=== PATIENT | female | born 1995 | race Caucasian/White ===

== ENCOUNTER 2017-06-26 06:12 | Inpatient (IN) ==
--- OUTSIDE RECORDS SUMMARY | 2017-06-26 06:19 | External Medical Summary ---
:1997 Author Organization [facility] Address [address] [place], [place] [address] Care Team Providers Name Role Phone Alice Chavarria Unavailable Unavailable PROBLEMS Type Condition ICD9-CM Code NUT12-SG Code Onset Condition SNOMED Code Dates Status Assessment Nausea & R11.2 Oct, Active 55073469 vomiting 2016 Assessment Abnormal urine R82.90 Oct, Active 475220023 finding 2016 ALLERGIES Substance Reaction Event Type Date Status N.K.D.A. Unknown Non Drug Allergy Oct, Unknown SOCIAL HISTORY No smoking Hx information available PLAN OF CARE Activity Details Pending Test Urine Culture prn,Reason: VITAL SIGNS Height 5 ft 8 in in 2016-11-02 Weight 154 lb 4 oz lbs 2016-11-02 BMI 23.45 kg/m2 2016-11-02 Temperature 98.2 degrees Fahrenheit 2016-11-02 Heart Rate 74 /min 2016-11-02 Respiratory Rate 18 /min 2016-11-02 Oximetry 97 % 2016-11-02 Blood pressure systolic 120 mm Hg 2016-11-02 Blood pressure diastolic 64 mm Hg 2016-11-02 MEDICATIONS Medication Instructions Dosage Frequency Start End Date Duration Status Date Zofran ODT 8 Orally every 8 as directed Oct, days Active MG hours prn nausea 2017 and vomiting RESULTS Name Result Date Reference Range Test, Urine 2016-11-02 Test, Urine negative Urinalysis (UA) - IH 2016-11-02 Color yellow Character clear Blood trace-intact Glucose neg 0 - 0 Bilirubin neg Ketones neg 0 - 0 Specific [place] 1.015 pH 7.5 Leukocytes neg Protein neg 0 - 0 Nitrates neg Urobilirubin 0.2 0.2 - 1 Urine Culture 2016-11-02 Urine Culture Source: Urine Collected: 11/02/16 12:34 PROCEDURES Procedure Date Ordered Related Diagnosis Body Site URINE TEST November 02, 2016 URINALYSIS NONAUTO WO SCOPE November 02, 2016 OFFICE VISIT NEW PATIENT LEVEL 2 November 02, 2016 URINE CULTURECOLONY COUNT November 02, 2016 IMMUNIZATIONS No Known Immunizations
--- OUTSIDE RECORDS SUMMARY | 2017-06-26 06:19 | External Medical Summary | Continuity of Care Document ---
:1997 Author Organization [facility] Address [address] [place], [place] [address] Phone Support Name Relationship Address Phone Adrian Mcduffie parent [address] [phone] [facility] [place] [address] Alda Greene parent [phone] [phone] EPIFANIO Fonseca [phone] Allergies, Adverse Reactions, Alerts Substance Reaction Severity Status No Known Drug Allergies Unknown Active Medications Medication Instructions Dosage Effective Dates Status Comments (start - stop) Prenatabs Rx 29 mg take 1 tablet by Not Available - Active iron-1 mg tablet oral route every day Problems Condition Effective Dates (start - stop) Clinical Status Cystic fibrosis carrier - Encntr for suprvsn of normal first - preg, second trimester 26 weeks gestation of - 9 weeks gestation of - Encntr for suprvsn of normal first - preg, first trimester Irregular Menses Cystic fibrosis carrier - Encntr for suprvsn of normal first - preg, second trimester 18 weeks gestation of - Cystic fibrosis carrier - Encntr for suprvsn of normal first - preg, second trimester 22 weeks gestation of - Cystic fibrosis carrier - 18 weeks gestation of - Encntr for suprvsn of normal first - preg, second trimester Encntr for suprvsn of normal first - preg, first trimester 13 weeks gestation of - Asthma Active Procedures Procedure Date OB Visit No Charge Hemoglobin count, colorimetric Hematocrit blood count Glucose test Venpnctr fngr/heel/ear stick routne Results Test Name Date and Time Measure Units Reference Range Abnormal Flag Comments Panel Description: Glucose [Mass/volume] in Serum or Plasma --1 hour post 50 g glucose PO GLUCOSE, GESTATIONAL 96 mg/dL <140 N Test performed at [facility] SCREEN (50G)-140 09:25:00 DIAGNOSTICS [id number] [place] [address]Khsrnzaf: EDINSON TA DO,MPH Panel Description: HEMOGLOBIN + HEMATOCRIT HEMOGLOBIN 09:25:00 10.8 g/dL 11.7-15.5 L HEMATOCRIT 09:25:00 31.3 % 35.0-45.0 L Test performed at [facility] [id number] [place] [id number]: EDINSON TA DO,MPH Advance Directives Directive Yes / No Effective Date File Name Unknown Encounters Encounter Practice Location Reason(s) Diagnoses Date Provider Care Team Description For Visit Members Associates С[place]гей reed Tani Referring In [facility] nda. Provider: Siddharth OVERTON, for suprvsn of 7 700 [address] normal first Medical Pierce T, 1522, preg, second Center 700 [place], [id number] Reza Vang, weeks gestation 120, [place] [id number], [facility], [place], tel: [phone] [place], [address] , [place]. [id number]. tel: tel: [phone] Prasanth reed Tani [facility] Provider: Siddharth OVERTON, for suprvsn of 7 700 [address] normal first Medical Pierce T, 1522, preg, second Center 700 [place], [id number] Reza Vang, weeks gestation 120, [place] [id number], of Сергей, Reza 120, [place], tel:+ [phone] [place], , [place]. [id number]. tel: tel:[phone] Prasanth Rushing Cystic fibrosis Victoriano-2 Pierce Referring In Womens [email or web address] weeks 6-201 Kristina. Provider: Siddharth OVERTON, gestation of 7 700 Kristina [address] pregnancyEncntr Medical Pierce T, 1522, for suprvsn of Center 700 [place], normal first Reza Vang, preg, second 120, Center [id number], trimester Rushing, Reza 120, [place], tel:+ [phone] [place], , [place]. [id number]. tel: tel:[phone] Prasanth Rushing Cystic fibrosis Victoriano-2 Pierce Referring In Womens Ultrasound carrierEncntr 6-201 Kristina. Provider: Siddharth OVERTON, for suprvsn of 7 700 [address]ist[address] normal first Medical Pierce T, 152, preg, second Center 700 [place], [id number] Reza Vang, weeks gestation 120, Center [id number], of Rushing, Reza 120, [place], tel:+ [phone] [place], , [place]. [id number]. tel: tel:[phone] Prasanth Rushing Encntr for May-2 Pierce Referring In Womens suprvsn of 5-201 Kristina. Provider: Siddharth OVERTON, normal first 7 700 Kristina [address] preg, first Medical Pierce T, 1522, [id number] Center 700 [place], weeks gestation Reza Vang, of 120, Center [id number], [place], Reza 120, [place], tel:[phone] [place], , [place]. [id number]. tel: tel:[phone] Prasanth Rushing 9 weeks Apr-2 Pierce Referring In Womens gestation of 7-201 Kristina. Provider: Siddharth OVERTON, pregnancyEncntr 7 700 Kristina [address] for suprvsn of Medical Pierce T, 1522, normal first Center 700 [place], preg, first Dr, [facility], trimester 120, Center [id number], Сергей, [facility] 120, TISHA, Сергей, tel: [phone] [place], , . [id number]. tel: tel:[phone] Associates С[place]гей Irregular Menses May-0 Pierce Referring In Womens 4-201 Kristina. Provider: Health [place], 6 700 [facility] Pierce T, 1522, [place] [address] [address] Grisel, [facility], 120, [place] [id number], Rushing, [facility] 120, [facility], Сергей, tel: [phone] [place], , . [id number]. tel: tel:[phone] Associates [place]ей May-0 Pierce In Womens 4-201 Kristina. Formerly [facility], 1928–1983, 6 700 [facility] 1522, [place] Dr Grisel, [facility], 120, [id number], [place], TISHA, tel: [phone] , . tel: [phone] Family History Family Member Diagnosis Age At Onset Paternal Grandfather Diabetes Paternal Grandfather Cardiovascular Disease Paternal Grandmother Diabetes Paternal Grandfather Hypertension Father Diabetes Father Hypertension Paternal Grandmother Hypertension Paternal Grandmother Thyroid Disorder Immunizations Vaccine Date Status Comments Unknown Payers Payer name Insurance type Covered libertarian ID Authorization(s) [facility] [id number] [facility] [id number] Social History Type Description Quantity Date Captured Alcohol Use Details Unknown Caffeine Use Details Unknown Tobacco Use Status Smoking Status Former smoker Vital Signs Date / Height Weight BMI Pulse Blood Temperature Respiratory Body Head BMI Time: Rate Pressure Rate Surface Circumference percentile Area 170.60 26.3 130/87 -2017 lbs 2 mm[Hg] 8:32 kg/m AM eter (2) Chief Complaint And Reason For Visit Unknown Chief Complaint And Reason For Visit Reason For Referral Reason For Referral Unknown Plan Of Care Date Type Action Status Appointment Haley Mcduffie BOOKED Appointment Haley Mcduffie BOOKED Appointment Haley Mcduffie BOOKED Appointment Haley Mcduffie BOOKED Future Order: Radiology Order Complete OB Ultrasound > 14 Ordered Weeks ([id number]) Date Type Problem Goal Intervention Status Start Date Unknown. History Of Present Illness Encounter Date Complaint History Of Present Illness This patient has no known history of present illness Functional Status Encounter Date Functional Assessment Cognitive Assessment Unknown Medications Administered Medication Instructions Dosage Effective Dates (start - stop) Status Comments Drug Treatment Unknown Instructions Date Instruction Additional Information HIV and other routine tests risk factors identified by history anticipated course of care nutrition and weight gain counseling, special diet toxoplasmosis precautions (cats / raw meat) sexual activity exercise indications for ultrasound influenza vaccine environmental / work hazards travel tobacco (ask, advise, assess, assist and arrange) alcohol illicit / recreational drugs use of any medications (including supplements, vitamins, herbs, OTC drugs) smoking counseling domestic violence seat belt use childbirth classes / hospital facilities hospital registration genetic testing new ob handbook
--- OUTSIDE RECORDS SUMMARY | 2017-06-26 06:19 | External Medical Summary | Continuity of Care Document ---
:1997 Author Organization [facility] Address [address] [place], [place] [address] Phone Support Name Relationship Address Phone Adrian Mcduffie parent [address] [phone] [place] [address] Alda Greene parent [phone] [address] [phone] EPIFANIO Fonseca [phone] Allergies, Adverse Reactions, Alerts Substance Reaction Severity [...] second trimester 22 weeks gestation of - Encntr for suprvsn of normal first - preg, first trimester 9 weeks gestation of - Irregular Menses Cystic fibrosis carrier - Encntr for suprvsn of normal first - preg, second trimester 18 weeks gestation of - Cystic fibrosis carrier - Encntr for suprvsn of normal first - preg, second trimester 18 weeks gestation of - Encntr for suprvsn of normal first - preg, first trimester 13 weeks gestation of - Asthma Active Procedures Procedure Date OB Visit No Charge Results Test Name Date and Time Measure Units Reference Range Abnormal Flag Comments Unknown Advance Directives Directive Yes / No Effective Date File Name Unknown Encounters Encounter Practice Location Reason(s) Diagnoses Date Provider Care Team Description For Visit Members Prasanth Coronado Lamont-2 Tani Referring In Womens fibrosis 4- Adriane. Provider: Madeline Williamsonntr 7 700 Kristina [address], for suprvsn of Medical Pierce Pap[place], [place], normal first Center 700 [id number], preg, second [facility] [place] [email or web address] 120, Center tel:+21 weeks Rushing, [facility] [place] 120, [address] gestation of Сергей [place], [id number] [place], , [place]. [id number]. tel: tel:[phone] Prasanth Coronado Victoriano-2 Pierce Referring In Womens fibrosis - Kristina. Provider: Madeline Williamsonntr 7 700 [address]ina [address], for suprvsn of Medical Pierce T, [place], [place], normal first Center 700 [id number], preg, second [facility] [place] [email or web address] 120, [place] tel:+21 weeks Сергей [facility] [place] 120, [address] gestation of Сергей [place], [id number] [place], , [place]. [id number]. tel: tel:[phone] Prasanth Coronado Victoriano-2 Pierce Referring In Womens Ultrasound fibrosis - Kristina. Provider: Madeline Williamsonntr 7 700 [address]ina [address], for suprvsn of Medical Pierce T, [place], normal first Center 700 [id number], preg, second [facility] [place] [email or web address] 120, [place] tel:+[phone] weeks Сергей Reza 120, [address] gestation of Сергей [place], [id number] [place], , [place]. [id number]. tel: tel:[phone] Associates Сергей Pratt for December- Pierce Referring In Womens suprvsn of - Kristina. Provider: Siddharth OVERTON normal first 7 700 Kristina [address], preg, first Medical Pierce Papito, [place], Center 700 [id number], weeks [facility] [place] gestation of 120, [place] tel: R[place], [facility] [place] 120, [address] [place], С[place], [id number] [place], , [place]. [id number]. tel: tel: [phone] Associates Сергей Encntr for Apr-2 Pierce Referring In Womens suprvsn of 7-201 Kristina. Provider: Health [place], normal first 7 700 Kristina [address], preg, first Medical Pierce T, [place], [place], trimester9 Center [facility] [id number], weeks , [facility] gestation of 120, Center tel: Сергей, [facility] [place] 120, [address] [place], [place], [id number] [place], , [place]. [id number]. tel: tel: [phone] Prasanth Rushing Irregular Oct-0 Pierce Referring In Womens Menses 4-201 Kristina. Provider: Siddharth OVERTON, 6 700 Kristina [address], Medical Kari Cobos [place], [place], [place] [id number], , [facility] 120, [place] tel:21 [facility], [address] [place], [place], [id number] [place], , [place]. [id number]. tel: tel: [phone] Prasanth Rushing Oct-0 Pierce In Womens 4-201 Kristina. Health TIAN, 6 700 [address], [place], [place], [place] [id number], , [facility] 120, tel: С[facility]гей [phone], [id number] , [place]. tel: [phone] Family History Family Member Diagnosis Age At Onset Paternal Grandfather Diabetes Paternal Grandfather Cardiovascular Disease Paternal Grandmother Diabetes Paternal Grandfather Hypertension Father Diabetes Father Hypertension Paternal Grandmother Hypertension Paternal Grandmother Thyroid Disorder Immunizations Vaccine Date Status Comments Unknown Payers Payer name Insurance type Covered alliance party ID Authorization(s) [facility] [place] [id number] [employer] CI [id number] Social History Type Description Quantity Date Captured Alcohol Use Details Unknown Caffeine Use Details Unknown Tobacco Use Status Smoking Status Former smoker Vital Signs Date / Height Weight BMI Pulse Blood Temperature Respiratory Body Head BMI Time: Rate Pressure Rate Surface Circumference percentile Area Unknown Chief Complaint And Reason For Visit Unknown Chief Complaint And Reason For Visit Reason For Referral Reason For Referral Unknown Plan Of Care Date Type Action Status Appointment Haley Mcduffie BOOKED Future Order: Radiology Order Complete OB Ultrasound > 14 Ordered Weeks (40419) Date Type Problem Goal Intervention Status Start [...]
--- OUTSIDE RECORDS SUMMARY | 2017-06-26 06:19 | External Medical Summary | Continuity of Care Document ---
:1997 Author Organization [facility] Address [address] [place], [place] [address] Phone Support Name Relationship Address Phone Adrian Mcduffie parent [address] [phone] [place] [address] Alda Greene parent [address] [address] [place] [address] [phone] EPIFANIO Fonseca [address] Allergies, Adverse Reactions, Alerts Substance Reaction Severity [...] for suprvsn of normal first - preg, third trimester 30 weeks gestation of - Encntr for suprvsn of normal first - preg, first trimester 9 weeks gestation of - Irregular Menses Cystic fibrosis carrier - Encntr for suprvsn of normal first - preg, second trimester 26 weeks gestation of - Cystic fibrosis carrier [...] for suprvsn of normal first - preg, third trimester 32 weeks gestation of - Encntr for suprvsn of normal first - preg, first trimester 13 weeks gestation of - Asthma Active Procedures Procedure Date Injection Administration Rhophylac 100 Units OB Visit No Charge Antibody Screen, RBC Venpnctr fngr/heel/ear stick routne Results Test Name Date and Time Measure Units Reference Range Abnormal Flag Comments Panel Description: ANTIBODY SCREEN, RBC W/REFL ID, TITER AND AG ANTIBODY NO ANTIBODIES N Reference SCREEN, RBC 13:22:00 DETECTED range No W/REFL ID, antibodies detected This TITER AND AG assay is a screening test for the detection of red blood cell antibodies. The test is not to be used for pretransfusion screening or for the medical management of an alloimmunized . REPORT COMMENT:FASTING:NOTest performed at [employer] [id number] [place] [address]Chkrfyzc: EDINSON TA DO,MPH Advance Directives Directive Yes / No Effective Date File Name Unknown Encounters Encounter Practice Location Reason(s) Diagnoses Date Provider Care Team Description For Visit Members Prasanth Coronado Tani Referring In Womens fibrosis [place]. Provider: linette WilliamsonEncntr 7 700 Kristina [address], for suprvsn of Medical Grisel Peña [place], normal [facility] Center 700 [id number], preg, third Reza Vang [place] [email or web address] 120, Center tel:[phone] weeks Reza [place] 120, [address] gestation of TISHA, [place], [id number] [place], , [place]. [id number]. tel: tel: [phone] Prasanth Coronado Apr- [facility] Referring In Womens fibrosis Adriane. Provider: Siddharth OVERTON carrierEncntr 7 Kristina [address], for suprvsn of Medical Grisel [place]ña [place], normal first Center 700 [id number], preg, third [facility] [place] [email or web address] 120, Center tel:+21 weeks Сергей Reza 120, [address] gestation of Сергей [place], [id number] [place], , [place]. [id number]. tel: tel:[phone] Prasanth Rushing Cystic Aug-2 Tani Referring In Womens fibrosis [place]. Provider: Siddharth OVERTON [employer] 7 700 [address]ina [address], for suprvsn of Medical [place], normal first Center 700 [id number], preg, second [facility] [place] [email or web address] 120, Center tel:+21 weeks Сергей Reza 120, [address] gestation of Сергей [place], [id number] [place], , [place]. [id number]. tel: tel:[phone] Prasanth Coronado Lamont-2 Tani Referring In Womens fibrosis [place]. Provider: Madeline Williamsonntpurnima 7 700 [address], for suprvsn of Medical Pierce Papito [place], normal first Center 700 [id number], preg, second [facility] [place] [id number] 120, Center tel:+21 weeks Сергей Reza 120, [address] gestation of Сергей [place], [id number] [place], , [place]. [id number]. tel: tel:[phone] Prasanth Rushing Cystic Victoriano-2 Pierce Referring In Womens fibrosis - Kristina. Provider: Siddharth OVERTON [employer] 7 700 Kristina [address], for suprvsn of Medical Pierce Papito [place], normal first Center 700 [id number], preg, second [facility] [place] [email or web address] 120, Center tel:+[phone] weeks Rushing Reza 120, [address] gestation of Сергей [place], [id number] [place], , [place]. [id number]. tel: tel:[phone] Prasanth Rushing Cystic Victoriano-2 Pierce Referring In Womens Ultrasound fibrosis - Kristina. Provider: Siddharth OVERTON, carrierEncntr 7 700 [address], for suprvsn of Medical Pierce T, [place], [place], normal first Center 700 [id number], preg, second , [facility] 120, Center tel:+21 weeks [place]ushing, Reza 120, [address] gestation of [place], [place], [id number] [place], , [place]. [id number]. tel: tel:[phone] Prasanth Rushing Encntr for May-2 Pierce Referring In Womens suprvsn of 5-201 Kristina. Provider: Siddharth OVERTON, normal first 7 700 [address], preg, first Medical Pierce T, [place], [place], [id number] Center 700 [id number], weeks , [facility] gestation of 120, Center tel:+21 [place], Reza 120, [address] [place], [place], [id number] [place], , [place]. [id number]. tel: tel:[phone] Prasanth Rushing Encntr for Apr-2 Pierce Referring In Womens suprvsn of 7-201 Kristina. Provider: Siddharth OVERTON, normal first 7 700 Kristina [address], preg, first Medical Pierce T, [place], [place], trimester9 Center 700 [id number], weeks Dr [facility] gestation of 120, Center tel:+21 [place]ushing, Reza 120, [address] TISHA, [place], [id number] [place], , [place]. [id number]. tel: tel:[phone] Prasanth Rushing Irregular Oct-0 Pierce Referring In Womens Menses 4-201 Kristina. Provider: Siddharth OVERTON, 6 700 Kristina [address], Medical Pierce Papito, [place], [place], Center [facility] [id number], [facility] [place] 120, Center tel:+21 Сер[place]ей, Reza 120, [address] [place], [place], [id number] [place], , [place]. [id number]. tel: tel:[phone] Prasanth Rushing Oct-0 Pierce In Womens 4-201 [facility]. [facility], 6 700 [address], [facility] [id number], Dr [facility] [place] 120, tel:[phone] [place], [address] [place], [id number] , . tel: [phone] Family History Family Member Diagnosis Age At Onset Paternal Grandfather Diabetes Paternal Grandfather Cardiovascular Disease Paternal Grandmother Diabetes Paternal Grandfather Hypertension Father Diabetes Father Hypertension Paternal Grandmother Hypertension Paternal Grandmother Thyroid Disorder Immunizations Vaccine Date Status Comments Rhophylac completed Source: New Immunization Record Payers Payer name Insurance type Covered constitution party ID Authorization(s) [facility] [id number] Aetna CI [id number] [facility] [id number] Aetna CI [id number] Social History Type Description Quantity Date Captured [...] Complete OB Ultrasound > 14 Ordered Weeks (45475) Date Type Problem Goal Intervention Status Start [...]
--- OUTSIDE RECORDS SUMMARY | 2017-06-26 06:19 | External Medical Summary ---
:1997 Author Organization [facility] Address [address] [place], [place] [address] Care Team Providers Name Role Phone Alice Chavarria Unavailable Unavailable PROBLEMS Type Condition ICD9-CM Code VUP84-FU Code Onset Condition SNOMED Code Dates Status Problem Anxiety F41.9 Active 62929745 Problem Depression F32.9 Active 777140302 Problem History of Z86.19 Active 680159725 chicken pox Assessment Nausea and O21.9 Nov, Active 96403352 vomiting during 2017 ALLERGIES Substance Reaction Event Type Date Status N.K.D.A. Unknown Non Drug Allergy Nov, Unknown SOCIAL HISTORY No smoking Hx information available PLAN OF CARE Activity Details Pending Test CBC With Platelet and Differential Pending Test Comprehensive Metabolic Panel (CMP) Pending Test Urine Culture prn,Reason: VITAL SIGNS Height 5 ft 8 in in 2016-12-04 Weight 142 lb 2 oz lbs 2016-12-04 BMI 21.61 kg/m2 2016-12-04 Temperature 97.9 degrees Fahrenheit 2016-12-04 Heart Rate 62 /min 2016-12-04 Oximetry 97 % 2016-12-04 Blood pressure systolic 108 mm Hg 2016-12-04 Blood pressure diastolic 60 mm Hg 2016-12-04 MEDICATIONS No Known Medications RESULTS Name Result Date Reference Range Urinalysis (UA) - 2016-12-04 Color Dk yellow Character cloudy Blood trace-intact Glucose neg 0 - 0 Bilirubin neg Ketones neg 0 - 0 Specific [place] 1.020 pH 7.5 Leukocytes moderate Protein 30mg 0 - 0 Nitrates neg Urobilirubin 0.2 0.2 - 1 Venipuncture 2016-12-04 PROCEDURES Procedure Date Ordered Related Diagnosis Body Site URINALYSIS NONAUTO WO SCOPE December 04, 2016 URINE CULTURECOLONY COUNT December 04, 2016 COMPREHEN METABOLIC PANEL December 04, 2016 COMPLETE CBC WAUTO DIFF WBC December 04, 2016 OFFICE VISIT EST PATIENT LEVEL 4 December 04, 2016 ROUTINE VENIPUNCTURE December 04, 2016 IMMUNIZATIONS No Known Immunizations
--- OUTSIDE RECORDS SUMMARY | 2017-06-26 06:19 | External Medical Summary ---
:1995 Author Organization [facility] Address [address] [place], [place] [address] Care Team Providers Name Role Phone lAice Chavarria Unavailable Unavailable PROBLEMS Type Condition ICD9-CM Code XLB07-MH Code Onset Condition SNOMED Code Dates Status Problem Anxiety F41.9 Active 90138916 Problem Depression F32.9 Active 042075272 Problem History of Z86.19 Active 342635304 chicken pox ALLERGIES Unknown Allergies SOCIAL HISTORY No smoking Hx information available PLAN OF CARE VITAL SIGNS MEDICATIONS Unknown Medications RESULTS No Results PROCEDURES No Known procedures IMMUNIZATIONS No Known Immunizations
--- OUTSIDE RECORDS SUMMARY | 2017-06-26 06:20 | External Medical Summary | Continuity of Care Document ---
:1995 Author Organization [facility] Address [address] [place], [place] [address] Phone Support Name Relationship Address Phone Adrian Mcduffie parent [address] [phone] [place] [address] Alda Greene parent [phone] [phone] EPIFANIO Fonseca [phone] Allergies, Adverse Reactions, Alerts Substance Reaction Severity [...] third trimester 30 weeks gestation of - Cystic fibrosis carrier - Encntr for suprvsn of normal first - preg, second trimester 18 weeks gestation of - Encntr for suprvsn of normal first - preg, first trimester 13 weeks gestation of - Encntr for suprvsn of normal first - preg, third trimester 34 weeks gestation of - Asthma Active Procedures Procedure Date OB Visit No Charge Results Test Name Date and Time Measure Units Reference Range Abnormal Flag Comments Unknown Advance Directives Directive Yes / No Effective Date File Name Unknown Encounters Encounter Practice Location Reason(s) Diagnoses Date Provider Care Team Description For Visit Members Prasanth Pratt for Tani Referring In Womens suprvsn of Adriane. Provider: Siddharth OVERTON, normal first 7 700 Kristina [address], preg, third [facility] [place], [email or web address] Center 700 [id number], weeks Reza Vang [facility] gestation of 120, [place] tel: [facility] 120, [address] [place], [place], [id number] [place], , [place]. [id number]. tel: tel: [phone] Prasanth Coronado Oct-0 Tani Referring In Womens fibrosis 2201 Adriane. Provider: Siddharth OVERTON carrierEncntr 7 700 Kristina [address], for suprvsn of Medical [place], normal first Center 700 [id number], preg, third Reza Vang [facility] [email or web address] 120, [place] tel:21 weeks [facility] 120, [address] gestation of [place], [place], [id number] [place], , [place]. [id number]. tel: tel:[phone] Prasanth Coronado Apr- Tani Referring In Womens fibrosis 8201 Adriane. Provider: Siddharth OVERTON carrierEncntr 7 700 Kristina [address], for suprvsn of Medical [place], normal first Center 700 [id number], preg, third Reza Vang [facility] [place] [email or web address] 120, Center tel:+21 weeks С[place]ей Reza 120, [address] gestation of [place], [id number] [place], , [place]. [id number]. tel: tel:[phone] Associates [place] Cystic Aug-2 Tani Referring In Womens fibrosis - Saxman. Provider: Bienvenido Williamson 7 700 [facility] [address], for suprvsn of Medical [place], [place], normal first Center 700 [id number], preg, second Reza Vang [facility] [place] [email or web address] 120, Center tel:+21 weeks [place]ей Reza 120, [address] gestation of [place], [id number] [place], , [place]. [id number]. tel: tel:[phone] Prasanth [place] Cystic Lamont-2 Tani Referring In Womens fibrosis - Saxman. Provider: Bienvenido Williamson 7 700 [facility] [address], for suprvsn of Medical Pierce Papito, [place], [place], normal first Center 700 , preg, second Reza Vang [facility] [place] [email or web address] 120, Center tel:+21 weeks Reza [place] 120, [address] gestation of [place], [id number] [place], , [place]. [id number]. tel: tel:[phone] Prasanth [place] Cystic Victoriano-2 Pierce Referring In Womens fibrosis - Kristina. Provider: Bienvenido Williamson 7 700 [facility] [address], for suprvsn of Medical Pierce Papito, [place] Rec[place], normal first Center 700 , preg, second Reza Vang [facility] [place] [email or web address] 120, Center tel:+21 weeks [place]ей Reza 120, [address] gestation of [place], [id number] [place], , [place]. [id number]. tel: tel:[phone] Prasanth [place] Cystic Victoriano-2 Pierce Referring In Womens Ultrasound fibrosis 6- Kristina. Provider: Health PA, carrierEncntr 7 700 Kristina [address], for suprvsn of Medical Pierce T, [place], [place], normal first Center 700 [id number], preg, second [facility] [email or web address] 120, Center tel:+ weeks [place], Reza 120, [address] gestation of [place], [place], [id number] [place], , [place]. [id number]. tel: tel:[phone] Prasanth [place] Encntr for May-2 Pierce Referring In Womens suprvsn of 5-201 Kristina. Provider: Siddharth OVERTON, normal first 7 700 Kristina [address], preg, first Medical Pierce T, [place], [place], [email or web address] Center 700 [id number], weeks , [facility] gestation of 120, Center tel:+ [place], [facility] 120, [address] [place], [place], [id number] [place], , [place]. [id number]. tel: tel:[phone] Prasanth [place] Encntr for Apr-2 Pierce Referring In Womens suprvsn of 7-201 Rkistina. Provider: Siddharth OVERTON, normal first 7 700 Kristina [address], preg, first Medical Pierce T, [place], [place], trimester9 Center 700 [id number], weeks Dr [facility] gestation of 120, Center tel:+21 [place], [facility] 120, [address] [place], [place], [id number] [place], , [place]. [id number]. tel: tel:[phone] Prasanth Noriega Oct-0 Pierce Referring In Womens Menses 4-201 Kristina. Provider: Siddharth OVERTON, 6 700 Kristina [address], Medical Pierce T, [place], [place], Center [facility] [id number], Dr [facility] 120, [place] tel:+21 [place], Reza 120, [address] [place], [place], [id number] [place], , [place]. [id number]. tel: tel:[phone] Prasanth [place] Oct-0 Pierce In Womens 4-201 Kristina. Siddharth OVERTON, 6 700 [address], [place], [place], [place] [id number], Reza Vang [place] 120, tel:[phone] [place] [address] [place], [id number] , . tel:[phone] Family History Family Member Diagnosis Age At Onset Paternal Grandfather Diabetes Paternal Grandfather Cardiovascular Disease Paternal Grandmother Diabetes Paternal Grandfather Hypertension Father Diabetes Father Hypertension Paternal Grandmother Hypertension Paternal Grandmother Thyroid Disorder Immunizations Vaccine Date Status Comments Tdap completed Source: New Immunization Record Rhophylac completed Source: New Immunization Record Payers Payer name Insurance type Covered alliance party ID Authorization(s) [place] [id number] Aet[place] [id number] [place] [id number] Aet[place] [id number] [place] [id number] Aetna CI [id number] Social History Type Description Quantity Date Captured Alcohol Use Details Unknown Caffeine Use Details Unknown Tobacco Use Status Smoking Status Former smoker Vital Signs Date / Height Weight BMI Pulse Blood Temperature Respiratory Body Head BMI Time: Rate Pressure Rate Surface Circumference percentile Area 172.90 26.6 129/73 -2017 lbs 8 mm[Hg] 10:02 kg/m AM eter (2) 0 2017 0 9:59 kg/m AM eter (2) Chief Complaint And Reason For Visit Unknown Chief Complaint And Reason For Visit Reason For Referral Reason For Referral Unknown Plan Of Care Date Type Action Status Appointment Haley Mcduffie BOOKED Appointment Haley Mcduffie BOOKED Appointment Haley Mcduffie BOOKED Appointment Haley Mcduffie BOOKED Future Order: Radiology Order Complete OB Ultrasound > 14 Ordered Weeks (71151) Date Type Problem Goal Intervention Status Start [...]
--- OUTSIDE RECORDS SUMMARY | 2017-06-26 06:20 | External Medical Summary ---
:1997 Author Organization [facility] Address [address] [place], [place] [address] Care Team Providers Name Role Phone Alice Chavarria Unavailable Unavailable PROBLEMS Type Condition ICD9-CM Code QJM20-TC Code Onset Condition SNOMED Code Dates Status Assessment Amenorrhea N91.2 Nov, Active 26158386 2016 Assessment Nausea and R11.2 Nov, Active 34053662 vomiting 2016 Assessment Abnormal urine R82.90 Nov, Active 340053248 findings 2017 ALLERGIES Substance Reaction Event Type Date Status N.K.D.A. Unknown Non Drug Allergy Nov, Unknown SOCIAL HISTORY No smoking Hx information available PLAN OF CARE Activity Details Pending Test Urine Culture prn,Reason: VITAL SIGNS Height 5 ft 8 in in 2016-11-20 Weight 146 lb 2 oz lbs 2016-11-20 BMI 22.22 kg/m2 2016-11-20 Temperature 97.8 degrees Fahrenheit 2016-11-20 Heart Rate 86 /min 2016-11-20 Respiratory Rate 18 /min 2016-11-20 Oximetry 97 % 2016-11-20 Blood pressure systolic 112 mm Hg 2016-11-20 Blood pressure diastolic 62 mm Hg 2016-11-20 MEDICATIONS Medication Instructions Dosage Frequency Start End Date Duration Status Date Zofran ODT 8 Orally every 8 as directed Oct, days Active MG hours prn nausea 2017 and vomiting RESULTS Name Result Date Reference Range Test, Urine 2016-11-20 Test, Urine POSITIVE Urinalysis (UA) - IH 2016-11-20 Color yellow Character clear Blood small Glucose neg 0 - 0 Bilirubin neg Ketones neg 0 - 0 Specific [place] 1.030 pH 6.0 Leukocytes small Protein trace 0 - 0 Nitrates neg Urobilirubin 0.2 0.2 - 1 PROCEDURES Procedure Date Ordered Related Diagnosis Body Site URINE TEST November 20, 2016 URINE CULTURECOLONY COUNT November 20, 2016 OFFICE VISIT EST PATIENT LEVEL 3 November 20, 2016 IMMUNIZATIONS No Known Immunizations
--- OUTSIDE RECORDS SUMMARY | 2017-06-26 06:20 | External Medical Summary | Continuity of Care Document ---
:1997 Author Organization [facility] Address [address] [place], [place] [address] Phone Support Name Relationship Address Phone Adrian Mcduffie parent [address] [phone] [place] [address] Alda Greene parent [address] [phone] EPIFANIO Fonseca [address] Allergies, Adverse Reactions, Alerts Substance Reaction Severity Status No Known Drug Allergies Unknown Active Medications Medication Instructions Dosage Effective Dates Status Comments (start - stop) Prenatabs Rx 29 mg take 1 tablet by Not Available - Active iron-1 mg tablet oral route every day Problems Condition Effective Dates (start - stop) Clinical Status Encntr for suprvsn of normal first - preg, third trimester 34 weeks gestation of - Encntr for suprvsn [...] of normal first - preg, third trimester 36 weeks gestation of - Cystic fibrosis carrier - Encntr for suprvsn of normal first - preg, third trimester 32 weeks gestation of - Encntr for suprvsn of normal first - preg, first trimester 13 weeks gestation of - Asthma Active Procedures Procedure Date Immuniz admnin, 1 vac, sngl/combo 19 Yrs + TDAP VACCINE >7 IM OB Visit No Charge - CAD ENGINEER Results Test Name Date and Time Measure Units Reference Range Abnormal Flag Comments Unknown Advance Directives Directive Yes / No Effective Date File Name Unknown Encounters Encounter Practice Location Reason(s) Diagnoses Date Provider Care Team Description For Visit Members Prasanth Coronado Jun- Tani Referring In Womens fibrosis - Adriane. Provider: Siddharth OVERTON, carrierEncntr 7 700 Kristina [address], for suprvsn of Medical Rogelio Peñ[place], normal first Center 700 [id number], preg, third Reza Vang [facility] [email or web address] 120, [place] tel: weeks [facility] 120, [address] gestation of [place], [place], [id number] [place], , [place]. [id number]. tel: tel: [phone] Prasanth [place] Encntr for May- Tani Referring In Womens suprvsn of -201 Adriane. Provider: Siddharth OVERTON, normal first 7 700 Kristina [address], preg, third Medical Grisel Peña [place], [email or web address] Center 700 [id number], weeks Reza Vang gestation of 120, [place] tel: [facility] 120, [address] [place], [place], [id number] [place], , [place]. [id number]. tel: tel:[phone] Prasanth Coronado Oct-0 Tani Referring In Womens fibrosis 2-nda. Provider: Kavon Williamsonr 7 700 Kristina [address], for suprvsn of [place], [place], normal first Center 700 [id number], preg, third Dr [facility] [place] [email or web address] 120, Center tel: weeks Сергей [facility] 120, [address] gestation of [place]ей [place], [id number] [place], , [place]. [id number]. tel: tel:[phone] Prasanth Coronado Sep-1 Tani Referring In Womens fibrosis 8-nda. Provider: Bienvenido Williamson 7 700 Kristina [address], for suprvsn of [place], normal first Center 700 [id number], preg, third Dr [facility] [place] [email or web address] 120, Center tel: weeks Сергей [facility] 120, [address] gestation of [place]ей [place], [id number] [place], , [place]. [id number]. tel: tel:[phone] Prasanth Coronado Aug-2 Tani Referring In Womens fibrosis nda. Provider: Madeline Williamsonntr 7 700 Kristina [address], for suprvsn of [place], normal first Center 700 [id number], preg, second Dr [facility] [place] [email or web address] 120, Center tel:21 weeks Сергей [facility] 120, [address] gestation of [place]ей [place], [id number] [place], , [place]. [id number]. tel: tel:[phone] Prasanth Coronado Lamont-2 Tani Referring In Womens fibrosis nda. Provider: Madeline Williamsonntr 7 700 Kristina [address], for suprvsn of [place], normal first Center 700 [id number], preg, second Dr [facility] [place] [email or web address] 120, Center tel:[phone] weeks [place], Reza 120, [address] gestation of [place]ей [place], [id number] [place], , [place]. [id number]. tel: tel:[phone] Prasanth [place] Cystic Victoriano-2 Pierce Referring In Womens fibrosis 6-201 Kristina. Provider: Siddharth OVERTON, carrierEncntr 7 700 Kristina [address], for suprvsn of Medical Pierce T, [place], normal first Center 700 [id number], preg, second , [facility] [place] 120, Center tel:+21 weeks Сергей, Reza 120, [address] gestation of С[place]гей [place], [id number] [place], , [place]. [id number]. tel: tel:[phone] Prasanth [place] Cystic Victoriano-2 Pierce Referring In Womens Ultrasound fibrosis 6-201 Kristina. Provider: linette WilliamsonEncntr 7 700 Kristina [address], for suprvsn of Medical Pierce T, [place], [place], normal first Center 700 [id number], preg, second , [facility] [place] [email or web address] 120, Center tel:21 weeks Сергей, Reza 120, [address] gestation of [place]ей [place], [id number] [place], , [place]. [id number]. tel: tel:[phone] Prasanth [place] Encntr for May-2 Pierce Referring In Womens suprvsn of 5-201 Kristina. Provider: Siddharth OVERTON, normal first 7 700 Kristina [address], preg, first Medical Pierce T, [place], [place], [email or web address] Center 700 [id number], weeks Dr [facility] [place] gestation of 120, Center tel:21 Сергей, Reza 120, [address] [place]гей [place], [address] [place], , [place]. [id number]. tel: tel:[phone] Prasanth [place] Encntr for Apr-2 Pierce Referring In Womens suprvsn of 7-201 Kristina. Provider: Siddharth OVERTON, normal first 7 700 Kristina [address], preg, first Medical Pierce T, [place], [place], trimester9 Center 700 [id number], weeks , [facility] gestation of 120, Center tel:+21 [place], [facility] 120, [address] [place], [place]ей, [id number] [place], , [place]. [id number]. tel: tel:+ [phone] [facility] Irregular Oct-0 Pierce Referring In Womens Menses 4-201 Kristina. Provider: Health TIAN, 6 700 Kristina [address], [facility] Kari Cobos [place], [place], [place] 700 [id number], , [facility] 120, [place] Dr tel:+21 С[place]гей [facility] 120, [address] [place], [place], [id number] [place], , [place]. [id number]. tel: tel:+[phone] [facility] Oct-0 Pierce In Womens 4-201 Kristina. [facility], 6 700 [address], [place], [place], [place] [id number], , [facility] 120, tel: Сергей [address] [place], [id number] , [place]. tel: [phone] Family History Family Member Diagnosis Age At Onset Paternal Grandfather Diabetes Paternal Grandfather Cardiovascular Disease Paternal Grandmother Diabetes Paternal Grandfather Hypertension Father Diabetes Father Hypertension Paternal Grandmother Hypertension Paternal Grandmother Thyroid Disorder Immunizations Vaccine Date Status Comments Tdap completed Source: New Immunization Record Rhophylac completed Source: New Immunization Record Payers Payer name Insurance type Covered libertarian ID Authorization(s) [facility] [id number] Aetna CI [id number] [facility] [id number] Aetna CI [id number] [facility] [id number] Aet[employer] CI [id number] Social History Type Description Quantity Date Captured Alcohol Use Details Unknown Caffeine Use Details Tobacco Use Status Smoking Status Former smoker Vital Signs Date / Height Weight BMI Pulse Blood Temperature Respiratory Body Head BMI Time: Rate Pressure Rate Surface Circumference percentile Area Oct-16 180.80 27.9 139/79 -2017 lbs 0 mm[Hg] 9:33 kg/m AM eter (2) Chief Complaint And Reason For Visit Unknown Chief Complaint And Reason For Visit Reason For Referral Reason For Referral Unknown Plan Of Care Date Type Action Status Appointment Haley Mcduffie BOOKED Appointment Haley Mcduffie BOOKED Appointment Haley Mcduffie BOOKED Future Order: Radiology Order Complete OB Ultrasound > 14 Ordered Weeks (52333) Date Type Problem Goal Intervention Status Start [...]
--- OUTSIDE RECORDS SUMMARY | 2017-06-26 06:21 | External Medical Summary | Continuity of Care Document ---
:1997 Author Organization [facility] Address [address] [place], [place] [address] Phone Support Name Relationship Address Phone Adrian Mcduffie parent [address] [phone] [place] [address] Alda Greene parent [address] [address] [phone] EPIFANIO Fonseca [address] Allergies, Adverse Reactions, Alerts Substance Reaction Severity Status No Known Drug Allergies Unknown Active Medications Medication Instructions Dosage Effective Dates Status Comments (start - stop) Prenatabs Rx 29 mg take 1 tablet by Not Available - Active iron-1 mg tablet oral route every day Problems Condition Effective Dates (start - stop) Clinical Status 9 weeks gestation of - Encntr for [...] of - Asthma Active Procedures Procedure Date Unknown Results Test Name Date and Time Measure Units Reference Range Abnormal Flag Comments Unknown Advance Directives Directive Yes / No Effective Date File Name Unknown Encounters Encounter Practice Location Reason(s) Diagnoses Date Provider Care Team Description For Visit Members Prasanth reed Feb-2 Tani Referring In Womens carrierEncntr 4-201 Adriane. Provider: Siddharth OVERTON, for suprvsn of 7 700 Kristina [address] normal first Medical Pierce T, 1522, preg, second Center 700 [place], [email or web address] Reza Vang, weeks gestation 120, [place] [id number], of [place], Reza 120, [place]ей [place], tel:+[phone] [place], , [place]. [id number]. tel: tel:[phone] [facility] Feb-0 Tani In Womens 5-201 Adriane. Siddharth OVERTON, 7 700 [address], [place] Grisel, Dr [facility], 120, [id number], [place], [place], tel:[phone] , [place]. tel: [phone] Prasanth [place] Cystic fibrosis Victoriano-2 Pierce Referring In Womens [email or web address] weeks 6-201 Kristina. Provider: Siddharth OVERTON, gestation of 7 700 Kristina PO Box pregnancyEncntr Medical Pierce T, 1522, for suprvsn of Center 700 [place], normal first Reza aVng, preg, second 120, [place] [id number], trimester [place], Reza 120, [place] Сергей GILES, tel:[phone] [place], , [place]. [id number]. tel: tel:[phone] [facility] Cystic fibrosis Victoriano-2 Pierce Referring In Womens Ultrasound carrierEncntr 6-201 Kristina. Provider: Siddharth OVERTON, for suprvsn of 7 700 Kristina PO Box normal first Medical Pierce T, 1522, preg, second Center [address] [place] [address], [email or web address] Reza Vang, weeks gestation 120, Center , of [place], Reza 120, [place] С[place]гей G[place], tel:[phone] [place], , [place]. [id number]. tel: tel:[phone] [facility] Pratt for December- Pierce Referring In Womens suprvsn of 5-201 Kristina. Provider: Health TIAN, normal first 7 700 Kristina PO Box preg, first Medical Pierce T, 1522, Center 700 Grisel, weeks gestation , Reza GILES, of 120, Center [id number], [place], [facility] 120, [place] С[place], tel:+ [phone] [place], , [place]. [id number]. tel: tel:+ [phone] Prasanth [place] 9 weeks Nov-2 Pierce Referring In Womens gestation of 7-201 Kristina. Provider: Health TIAN, pregnancyEncntr 7 700 Kristina [address] Box for suprvsn of Medical Pierce T, 1522, normal first Center 700 [place], preg, first Reza Vang, trimester 120, Center [id number], [place], [facility] 120, Сергей GILES, tel:+ [phone] [place], , [place]. [id number]. tel: tel:+[phone] Prasanth [place] Irregular Menses May-0 Pierce Referring In Womens 4-201 Kristina. Provider: Siddharth OVERTON, 6 700 Kristina PO Box Medical Pierce T, 1522, Center [address] Dr [facility] [place], 120, [place] [id number], Сергей, [facility] 120, [place] Сергей GILES, tel:+ [phone] [place], , [place]. [id number]. tel: tel:+[phone] Prasanth [place] Oct-0 Pierce In Womens 4-201 Kristina. Health TIAN, 6 700 [address], Center Dr Grisel, [facility], 120, [id number], [place], [place]HA, tel:+[phone] , [place]. tel: [phone] Family History Family Member Diagnosis Age At Onset Paternal Grandfather Diabetes Paternal Grandfather Cardiovascular Disease Paternal Grandmother Diabetes Paternal Grandfather Hypertension Father Diabetes Father Hypertension Paternal Grandmother Hypertension Paternal Grandmother Thyroid Disorder Immunizations Vaccine Date Status Comments Unknown Payers Payer name Insurance type Covered constitution party ID Authorization(s) [facility] TISHA BL [id number] Paul [id number] Social History Type Description Quantity Date Captured Unknown Vital Signs Date / Height Weight BMI [...] Complete OB Ultrasound > 14 Ordered Weeks (76599) Date Type Problem Goal Intervention Status Start [...]
--- OUTSIDE RECORDS SUMMARY | 2017-06-26 06:21 | External Medical Summary | Continuity of Care Document ---
:1995 Author Organization [facility] Allergies Active Description Code Type Severity Reaction Onset Reported/ Identified Relationship Clinical to Patient Status Yes No Known 40244 3 N/A N/A 07/18/1003 Drug 0 Allergies Medications Problems Date Dx Coded Attending Type Code Diagnosis Diagnosed By 02/11/2017 Kristina Pierce Z14.1 Cystic fibrosis S carrier 02/11/2017 Kristina Pierce Z34.02 Encntr for S suprvsn of normal first preg, second trimester 02/11/2017 Kristina Pierce Z3A.18 18 weeks S gestation of Procedures Code Description Performed By Performed On 02/11/2017 24374 Ultrasnd exam of preg uterus, compl 05/06/2017 54918 Injection Administration 05/06/2017 J2791 Rhophylac 100 IU 06/03/2017 93370 Immuniz admnin, 1 vac, sngl/combo TDAP 06/03/2017 83891 VACCINE >7 IM Results Encounters ACCT No. Visit Discharge Status Pt. Type Provider Facility Loc./Unit Complaint Date/Time [id number] 05/20/2017 05/20/2017 [facility] Outpatient [facility], 09:45:00 23:59:59 Adriane L [id number] 05/06/2017 05/06/2017 [facility] Outpatient Tani, 13:15:00 23:59:59 Adriane L [id number] 04/08/2017 04/08/2017 [facility] Outpatient Tani, 08:15:00 23:59:59 Adriane L [id number] 03/11/2017 03/11/2017 [facility] Outpatient Tani, 09:30:00 23:59:59 Adriane L [id number] 02/20/2017 02/20/2017 [facility] Outpatient Tani, 11:47:00 23:59:59 Adriane L [id number] 02/11/2017 02/11/2017 [facility] Outpatient Pierce, 09:50:00 23:59:59 Kristina Santos [id number] 02/11/2017 02/11/2017 [facility] Pierce, 09:15:00 23:59:59 Kristina S [id number] 01/17/2017 01/17/2017 [facility] Pierce, 16:03:00 23:59:59 Kristina S [id number] 01/10/2017 01/10/2017 [facility] Pierce, 11:00:00 23:59:59 Kristina S [id number] 12/13/2016 12/13/2016 [facility]patient Pierce, 09:50:00 23:59:59 Kristina S [id number] 05/23/2016 05/23/2016 [facility]patient Pierce, 08:18:00 23:59:59 Kristina S [id number] 05/22/2016 05/22/2016 [facility]patient Pierce, 14:45:00 23:59:59 Kristina S [id number] 05/22/2016 05/22/2016 [facility] Pierce, 08:33:00 23:59:59 Kristina S [id number] 06/19/2017 Document 10:45:00 Registration [id number] 06/03/2017 Document 09:45:00 Registration
[2017-06-26 07:28] VITALS: BMI 28.3
[2017-06-26] MEDS ORDERED: LIDOCAINE 1% (10mg/ml) 2mL INJ PF SDV ID PRN (08:57)
[2017-06-26] MEDS ORDERED: MAG-AL + SIM ORAL LIQUID 30ml PO PRN ×2 (08:57→17:07)
[2017-06-26] MEDS ORDERED: METHYLERGONOVINE 0.2 MG/ML INJECTION IM PRN (08:57)
[2017-06-26] MEDS ORDERED: ACETAMINOPHEN 500 MG TABLET PO PRN (08:57)
[2017-06-26] MEDS ORDERED: CARBOPROST 250 MCG/ML INJECTION IM PRN (08:57)
[2017-06-26] MEDS ORDERED: CALCIUM CARBONATE Chewable 500mg TABLET PO PRN ×2 (08:57→17:07)
[2017-06-26] MEDS: LR 1,000 ML IV PRN ×2 (09:55→14:36)
[2017-06-26] MEDS ORDERED: DiphenhydrAMINE 25 MG CAPSULE PO PRN (17:07)
[2017-06-26] MEDS ORDERED: SALINE FLUSH 10ml SYRINGE IV PRN (17:07)
[2017-06-26] MEDS ORDERED: OXYTOCIN DRIP 30 UNIT/500 ML ML IV SCH (17:07)
[2017-06-26] MEDS ORDERED: HYDROCODONE/APAP 5mg/325mg TABLET PO PRN (17:07)
[2017-06-26] MEDS ORDERED: HYDROCORTISONE 2.5% CREAM 30gm RECTALLY PRN (17:07)
[2017-06-26] MEDS ORDERED: RHOPHYLAC - PHARMACY CONSULT MC ONE (17:07)
[2017-06-26] MEDS: IBUPROFEN 800 MG TABLET PO SCH (17:22)
--- NOTE | 2017-06-26 18:46 | Labor and Delivery Note ---
DATE OF DELIVERY 06/26/2017 NARRATIVE Ms. Mcduffie progressed very well in first stage of labor. She began to push with excellent effort at complete and +1 presentation. She pushed for a little over an hour, delivering the head in the OA presentation. Baby was bulb suctioned on the perineum. There was no evidence of nuchal cord. With a further push she delivered the baby in total. Baby was bulb suctioned further and then placed on mother's abdomen. After about two and a half minutes the cord was soft. It was doubly clamped. It was then cut by the baby's father, Olayinka. This is a liveborn male with Apgars of 8/9/9. He weighed 7 pounds 15.4 ounces. After a few moments the placenta delivered spontaneously intact. It had a normal configuration and normal-appearing three-vessel cord. There were bilateral periurethral lacerations that were hemostatic and were therefore not repaired. Total blood loss was approximately 300 mL. At the time of this dictation mother and baby are doing well. MARK
[2017-06-27] MEDS: IBUPROFEN 800 MG TABLET PO SCH ×4 (04:37→19:13)
--- NOTE | 2017-06-27 08:07 | OB/GYN Progress Note ---
OB-PP Progress Note - General PPD1 - Subjective Date: 06/27/17 Lochia: Moderate Pain: controlled (Ibuprofen helping the cramping. ) Voiding: voiding Nausea or Vomiting Present: No - Objective Vital Signs: Last Vital Signs Temp 97.8 F 06/26/17 23:03 Pulse 92 06/26/17 23:03 Resp 14 06/26/17 23:03 BP 126/64 06/26/17 23:03 Pulse Ox 98 06/26/17 09:38 Urine Output: good General: alert and oriented Abdomen: fundus firm Extremities: non-tender Laboratory: Laboratory Results - last 24 hr 06/26/17 06/26/17 06/26/17 09:24 09:24 18:37 WBC 13.5 H RBC 4.14 Hgb 12.1 Hct 36.6 MCV 88.4 MCH 29.2 MCHC 33.1 RDW Std Deviation 41.5 Plt Count 266 MPV 10.4 Blood Type A Negative Antibody Screen Positive A* Antibody Identification Immune D RhIG Candidate? Not a candidate - Assessment Assessment: - Plan Plan: routine care (Planning for dismissal tomorrow. )
[2017-06-27] MEDS: ACETAMINOPHEN 500 MG TABLET PO PRN ×2 (11:35→21:09)
[2017-06-27] MEDS: DOCUSATE CALCIUM 240 MG CAPSULE PO SCH (11:37)
[2017-06-28] MEDS: IBUPROFEN 800 MG TABLET PO SCH ×2 (00:26→09:20)
[2017-06-28 00:39] VITALS: TEMP 98; O2SAT 96
[2017-06-28] MEDS: DOCUSATE CALCIUM 240 MG CAPSULE PO SCH (09:21)
[2017-06-28 09:33] VITALS: BP 123/78; PULSE 96; RESP 17
== END 2017-06-28 11:20 | disposition home or self-care (01) | DRG 775 ==
LOC: OBOBS 06:12 → MC 06:12
PROVIDERS: ADMIT Obstetrics & Gynecology; ATTEND Obstetrics & Gynecology